=== PATIENT | female | born 1950 | race Caucasian/White ===

== ENCOUNTER 2016-05-16 13:36 | Inpatient (IN) | payer MEDICARE ==
--- NOTE | 2016-07-22 12:08 | HP ---
DATE OF CLINIC: 07/06/16 BRIAN VALE I. : 1950 PLANNED PROCEDURE: Left total knee arthroplasty DATE OF PROCEDURE: July 25, 2016 SURGEON: Dr. Jesus Solis MD PCP: Dr. Jan Mittal HISTORY OF PRESENT ILLNESS Brian Vale is a 65 year old female. * Medication list reviewed with patient allergy list reviewed with patient. * Tried NSAIDS * Tried Physical Therapy * Has not tried Injections Ms. Vale is in today pre-operatively for her upcoming left total knee arthroplasty with Dr. Solis on 07/25/16. Patient presents in good spirits and is eager to proceed. She denies recent illness, change in health, or prior surgical complications. Current labs are pending. Her recent consult with Dr. Solis follows: 65-year-old female here for 2nd opinion consultation with respect to her knees. She has a long history of chronic, progressive weightbearing related left knee discomfort. It is medial greater than lateral, but fairly diffuse, non-mechanical, worse at startup. She also has some rest discomfort. This is non-radicular. In addition, she's got some difficulty with some non-focal right knee discomfort and stiffness. She is s/p a [place] [address] Harrison. She has not see him for several years. This has not been progressive. She is also s/p a right DONNA by Dr. Baker in 2006 which has not been seen for years. She denies any hip pain. She denies any radicular symptoms on the right. She is wondering about additional treatment algorithm, particularly regarding the left knee. She has no recent illnesses. Comorbidities do include hypertension. CURRENT MEDICATION * Adult Aspirin EC Low Strength 81 MG Tablet Delayed Release 1 once a day 0 days, 0 refills * Calcium 1200 5064-3521 MG-UNIT Tablet Chewable 1 once a day 0 days, 0 refills * GNP Potassium Gluconate 595 (99 K) MG Tablet 1 once a day 0 days, 0 refills * HM Super Vitamin B12 2500 MCG Tablet Chewable 1 once a day 0 days, 0 refills * HydroCHLOROthiazide 12.5 MG Tablet 1 once a day 0 days, 0 refills * ICaps AREDS Formula Tablet 1 twice a day 500mg, 0 days, 0 refills * Magnesium 500 MG Capsule 1 once a day 0 days, 0 refills * Naproxen Sodium 220 MG Capsule 2 once a day 0 days, 0 refills * Psyllium Husk Powder as directed 150g daily, 0 days, 0 refills * Red Yeast Rice Extract 600 MG Capsule as directed 1800mg daily, 0 days, 0 refills * Verapamil HCl ER 240 MG Capsule Extended Release 24 Hour 1 once a day 0 days, 0 refills PAST MEDICAL/SURGICAL HISTORY Reported: Medical: A history of cancer cervical, history of Arthritis, and Anemia. Surgical / Procedural: Replacement of a hip Right hip replaced 2006, of a knee Right knee replaced [address] Harrison, and Carpal Tunnel Surgery Bilateral 1999. SOCIAL HISTORY Behavioral: Caffeine use and non-smoker never smoked. Smoking status: Never smoker. Alcohol: Alcohol 1 glass of wine daily and alcohol use. Work: Occupation special education teaching assistant. ALLERGIES * Codeine * Vicodin REVIEW OF SYSTEMS Systemic: No fever and no recent weight change. Head: No head symptoms. Cardiovascular: No cardiovascular symptoms. Pulmonary: No pulmonary symptoms. Gastrointestinal: Gastrointestinal symptoms GERD, diet related. Psychological: No psychological symptoms. Skin: No skin lesions and no rash. PHYSICAL FINDINGS * Vitals taken 07/06/2016 10:35 am BP-Sitting R 149/89 mmHg 100 - 120/56 - 80 BP Cuff Size Regular Pulse Rate-Sitting 82 bpm 50 - 100 Temp-Oral 97.8 F 96 - 101 Height 58.75 in 59 - 68 Weight 150 lbs 96 - 178 Body Mass Index 30.6 kg/m2 Body Surface Area 1.63 m2 Pain Level 0 Ears, Nose, Throat: * ENT: normal. Lungs: * Clear to auscultation. Cardiovascular: Heart Rate And Rhythm: * Normal. Abdomen: * Normal. Neurological: Motor: * Dominant Hand = Right Hand. Patient is a well-developed, well-nourished female in no acute distress, normal-appearing mood and affect. She stands with a genu valgum on the left, neutral alignment on the right side. She ambulates with a stiff-legged gait, antalgic on the left, worse at startup. Her pelvis is level. Evaluation of the left lower extremity shows some global swelling about the knee, no gross effusion. Motion 5-120 degrees. She has tenderness medially greater than laterally, fairly diffuse. There is crepitation with patellar compression that is uncomfortable. Patella tracks well. Mildly tender over the anteromedial proximal tibia. Ligamentous exam is intact for cruciates and collaterals. Calf is soft and NT. Distal light touch sensation and motor function are intact and symmetric. Pulses are palpable. Gentle rotation of the hip is nonirritable. Evaluation of the right knee shows a well-healed anterior incision. No significant swelling or effusion. Motion is 0-95 degrees. Reasonable joint play and alignment. Relatively poor patellar mobility. No focal periarticular tenderness. Calf is soft and NT. Distal light touch sensation and motor function are intact and symmetric. Pulses are palpable. Evaluation of the left hip shows mild tenderness laterally over the trochanter, NT in the groin, NT in the sciatic notch. Flexion past 100 degrees, IR 25 degrees, ER 70 degrees, abduction 45 degrees, adduction past the midline and full extension. She has no pain with resisted active hip flexion. TESTS * Test: CBC WITH DIFF Report Date: 07/06/2016 WBC 8.7 10*3/mL BASOPHIL 1.3 % High RBC 4.66 10*6/uL NEUTROPHILS 61.3 % MCH 27.5 pg MCHC 32.0 g/dL Low RDW 14.8 % High MCV 85.8 fL PLATELET COUNT 305 10*3/mL IMM NEUT % 0.3 % IMM NEUT # 0.0 10*3/mL MONOCYTES 8.5 % EOSINOPHIL 2.6 % HCT 40.0 % HGB 12.8 g/L LYMPHOCYTE 26.0 % ANC 5.4 10*3/mL * Test: URINALYSIS Report Date: 07/06/2016 GLUCOSE NEGATIVE PH,URINE 7.0 SPEC. GRAVITY 1.015 KETONE NEGATIVE NITRITE NEGATIVE BLOOD NEGATIVE BILIRUBIN NEGATIVE APPEARANCE CLEAR PROTEIN NEGATIVE COLOR YELLOW LEUK ESTERASE NEGATIVE UROBILINOGEN NORMAL * Test: PROTHROMBIN TIME Report Date: 07/06/2016 PROTIME 9.7 s INR 0.92 * Test: PARTIAL THROMBOPLASTIN TIME Report Date: 07/06/2016 APTT 23.7 s Low * Test: COMPREHENSIVE METABOLIC PANEL Report Date: 07/06/2016 ALT/SGPT 18 U/L ALBUMIN 4.0 g/dL ALB/GLOB RATIO 1.6 BUN 21 mg/dL BUN/CREAT RATIO 21 High CALCIUM 10.2 mg/dL GLUCOSE 83 mg/dL CREATININE 1.0 mg/dL SODIUM 138 meq/L POTASSIUM 4.2 meq/L CHLORIDE 100 meq/L CARBON DIOXIDE 33 meq/L High ANION GAP 9 meq/L TOT PROTEIN 6.5 g/dL GLOBULIN 2.5 g/dL BILI,TOTAL 0.3 mg/dL AST/SGOT 20 U/L ALK PHOSPHATASE 82 U/L GFR 55 Low * Test: CULTURE, MRSA Report Date: 07/08/2016 CULTURE, MRSA See Report 4 views of the left knee obtained today show significant tricompartmental degenerative disease with hypertrophic changes. On the AP flexion view she has complete obliteration of the lateral joint space. There are large marginal medial and lateral compartment spurs. Patellofemoral articulation shows slight subluxation with superior and inferior spurring. Right knee, 3 views, show a cemented cruciate retaining arthroplasty in good position and alignment. No evidence of osteolysis, loosening or wear. Patellofemoral articulation is well-reduced. ASSESSMENT * Localized primary osteoarthritis of the left knee Advanced DJD, left knee. This seems to be her limiting problem. 7 years post right TKA, done elsewhere with chronic suboptimal motion, non-progressive. 10 years post right DONNA, clinically doing well. No recent radiographic evaluation. THERAPY * Patient fall risk screen positive. * Patient eligible for fall risk assessment. * Patient received fall risk assessment. COUNSELING/EDUCATION * Education and counseling Total Joint Book given PLAN * Unilateral primary osteoarthritis, left knee Physical Therapy: [facility] * OTHER OxyCONTIN 10 MG T12A, 1 po q 12 hours-TO BE USED FOR AFTER SURGERY, 10 days, 0 refills TraMADol HCl 50 MG TABS, 1 po q 6 hours prn pain-TO BE USED FOR AFTER SURGERY, 5 days, 0 refills OxyCODONE HCl 5 MG TABS, 1-2 po q 4 hours for break thru pain if needed-TO BE USED FOR AFTER SURGERY, 5 days, 0 refills * Total knee arthroplasty -Left Discussed with patient in detail the limitations, expectations as well as risks and possible complications of surgery including, but not limited to wound problems or infection, neurovascular injury, continued knee pain or dysfunction, including the possibility of prosthetic wear or failure over time that may require additional operative or nonoperative treatment. Patient also realizes the perioperative risks including risks associated with anesthesia and would like to proceed. A full PAR conference was held, questions and concerns addressed and informed consent was obtained. Patient will be sent from my office for completion of the preoperative workup. Patient will use aspirin 325mg daily for 6 weeks postoperatively for DVT prophylaxis. Patient would like to perform their postop PT at [facility] with left total knee arthroplasty protocol. CARE TEAM Jan Mittal MD [facility] CC: Jan Mittal [facility]
[2016-07-25] MEDS ORDERED: LACTATED RINGERS 1,000 ML ONE (08:07)
[2016-07-25] MEDS ORDERED: CEFAZOLIN SODIUM 2 GRAM PREMIX 100 ML IV ONE (08:08)
[2016-07-25] MEDS ORDERED: IV START KIT ONE (08:08)
[2016-07-25] MEDS ORDERED: FAMOTIDINE 20 MG TABLET PO ONE (08:30)
[2016-07-25] MEDS ORDERED: BUPIVACAINE 0.25% (MDV) 24 ML, MORPHINE SULFATE 8 MG, EPINEPHRINE 0.3 MG in SODIUM CHLO... IF PRN (08:30)
[2016-07-25] MEDS ORDERED: GABAPENTIN 600 MG TABLET PO ONE (08:30)
[2016-07-25] MEDS ORDERED: BUPIVACAINE 0.25% (MDV) 20 ML in SODIUM CHLORIDE 0.9% FLUSH 20 ML IF PRN (08:30)
[2016-07-25] MEDS ORDERED: ONDANSETRON 4 MG/2ML 2 ML VIAL IV ONE (08:30)
[2016-07-25] MEDS ORDERED: CELECOXIB 200 MG CAPSULE PO ONE (08:30)
[2016-07-25] MEDS ORDERED: OXYCODONE HCL 10 MG TAB.SR PO ONE ×2 (08:30→09:07)
[2016-07-25] MEDS ORDERED: TRANEXAMIC ACID 1,000 MG in SODIUM CHLORIDE 0.9% 100 ML IV PRN (08:30)
[2016-07-25] MEDS ORDERED: CEFAZOLIN SODIUM 2 GRAM PREMIX 100 ML IV PRN (08:30)
[2016-07-25] MEDS ORDERED: TRAMADOL HCL 50 MG TABLET PO ONE (08:30)
[2016-07-25] MEDS ORDERED: POLYMYXIN B SULFATE 500,000 UNITS, BACITRACIN 25,000 UNITS in SODIUM CHLORIDE 3 L IRRIG... IR PRN (08:30)
[2016-07-25] MEDS ORDERED: CLONIDINE HCL 0.1 MG/24 HR (7 DAY PATCH) TD SCH (08:30)
[2016-07-25] MEDS ORDERED: TRAMADOL HCL 50 MG TABLET ONE (09:07)
[2016-07-25] MEDS ORDERED: FAMOTIDINE 20 MG TABLET ONE (09:07)
[2016-07-25] MEDS ORDERED: ONDANSETRON 4 MG/2ML 2 ML VIAL ONE (09:07)
[2016-07-25] MEDS ORDERED: CLONIDINE HCL 0.1 MG/24 HR (7 DAY PATCH) TD ONE (09:08)
[2016-07-25] MEDS ORDERED: CELECOXIB 200 MG CAPSULE ONE (09:08)
[2016-07-25] MEDS ORDERED: GABAPENTIN 600 MG TABLET ONE (09:08)
[2016-07-25] MEDS ORDERED: FENTANYL 250 MCG/5 ML AMP ONE (09:12)
[2016-07-25] MEDS ORDERED: MIDAZOLAM HCL 5 MG/5 ML VIAL ONE (09:12)
[2016-07-25] MEDS ORDERED: SCOPOLAMINE 1.5 MG/72 HR 1 EACH PATCH TD ONE (09:19)
[2016-07-25] MEDS ORDERED: SPINAL PROCEDURAL TRAY 1 EACH ONE (09:37)
[2016-07-25] MEDS ORDERED: ROPIVACAINE 0.2% 20 ML VIAL ONE ×2 (09:37→09:38)
[2016-07-25] MEDS ORDERED: NERVE BLOCK PROCEDURAL TRAY 1 EACH ONE (09:37)
[2016-07-25] MEDS ORDERED: EPHEDRINE SULFATE UD SYR 25 MG 25 MG/5 ML SYRINGE IV ONE (11:43)
[2016-07-25] MEDS ORDERED: PROPOFOL 40 ML IV ONE (11:45)
[2016-07-25] MEDS ORDERED: DEXAMETHASONE SOD PHOS 4 MG/1 ML VIAL ONE (11:45)
[2016-07-25] MEDS ORDERED: LIDOCAINE 2% (PRES FREE) 5 ML VIAL ONE (11:45)
[2016-07-25] MEDS ORDERED: PHENYLEPHRINE 10 MG/1 ML (1%) VIAL ONE (12:00)
[2016-07-25] MEDS ORDERED: ONDANSETRON 4 MG/2ML 2 ML VIAL IV PRN ×2 (12:07→13:33)
[2016-07-25] MEDS ORDERED: ATROPINE SULFATE 0.4 MG/1 ML VIAL IV PRN (12:07)
[2016-07-25] MEDS ORDERED: HYDROMORPHONE HCL 1 MG/ML SYRINGE IV PRN ×3 (12:07→14:16)
[2016-07-25] MEDS ORDERED: FENTANYL 100 MCG/2 ML VIAL IV PRN (12:07)
[2016-07-25] MEDS ORDERED: NALOXONE HCL 0.4 MG/ML VIAL IV PRN (12:07)
[2016-07-25] MEDS ORDERED: ON-Q PUMP/ROPIVACAINE 0.2% 450 ML in PREMIX BAG 1 EACH NB PRN (12:07)
[2016-07-25] MEDS ORDERED: PROMETHAZINE HCL 25 MG/ML VIAL IM PRN (12:07)
[2016-07-25] MEDS ORDERED: DIPHENHYDRAMINE HCL 50 MG/1 ML VIAL ONE (12:08)
[2016-07-25] MEDS ORDERED: LACTATED RINGERS 1,000 ML IV SCH (12:15)
[2016-07-25] MEDS ORDERED: PROPOFOL 20 ML IV ONE (12:46)
[2016-07-25] MEDS ORDERED: ON-Q PUMP/ROPIVACAINE 0.2% 450 ML ONE (13:11)
--- NOTE | 2016-07-25 13:31 | PCMBPN ---
Brief Post Op Note: Date of Procedure: 07/25/16 Preoperative Diagnosis: DJD left knee Postoperative Diagnosis: 1. [Same] Procedure: left TKA Surgeon: Jesus Solis MD Assist:Yunier Anesthesia: spinal/add block ([facility]) Condition: stable to PAR Complications: none IV Fluids: 2000 mLs of LR Urine Output: 600 mLs Estimated Blood Loss: 150 mLs Tourniquet Time: ~40 Specimens: [N/A] Implants: Legion Drains: none
--- NOTE | 2016-07-25 13:56 | RAD ---
KNEE LEFT 1 OR 2 VIEWS COMPARISON: Left leg 3 views, 03/04/2016 HISTORY: Immediately postop left total knee arthroplasty. FINDINGS: Views: Left knee AP and lateral Bones: Normal. Joints: Satisfactory appearance of the left total knee arthroplasty. Soft tissues: Normal. IMPRESSION: Satisfactory appearance of the left total knee arthroplasty.
[2016-07-25] MEDS ORDERED: HYDROMORPHONE HCL 0.5 MG/0.5 ML SYRINGE IV PRN (14:16)
[2016-07-25] MEDS ORDERED: HYDROMORPHONE HCL 2 MG/ML SYRINGE IV PRN (14:16)
[2016-07-25 14:21] VITALS: BMI 29.2
--- NOTE | 2016-07-25 14:28 | OP ---
ANIBAL TEIXEIRA I. [id number] : 1950 DATE OF SURGERY: July 25, 2016 PREOPERATIVE DIAGNOSIS: Degenerative joint disease left knee POSTOPERATIVE DIAGNOSIS: Same PROCEDURE: Left Total Knee Arthroplasty COMPONENTS: Legion size 3 posterior stabilized Oxinium cemented femoral component, size 2 cemented tibial base plate, 11mm high flexion cross-linked polyethylene articular insert, 32mm resurfacing patella. SURGEON: Jesus Solis M.D. PARENTING SKILLS INSTRUCTOR: Yunier QURESHI) ANESTHESIA: Spinal plus adductor nerve block per [place] ESTIMATED BLOOD LOSS: 150 cc IV FLUID REPLACEMENT: per anesthesia, 2 liters crystalloid. URINE OUTPUT: 600 cc DRAINS: None TOURNIQUET TIME: Approximately 40 minutes COMPLICATIONS: None HISTORY: Briefly, patient is a 65-year-old female with clinical and radiographic evidence of advanced degenerative disease of their right knee. They have failed traditional non-operative management and desire elective total knee arthroplasty. For additional details, please refer to the previously dictated Preoperative History and Physical Examination. A PAR conference was held, questions and concerns were addressed, and informed consent was obtained. FINDINGS: Tricompartmental degenerative disease particularly the lateral compartment seen most with wear in the posterolateral tibia and peripheral osteophytes. There is also full thickness trochlear loss. Periarticular bone is quite osteopenic. PROCEDURE: The patient was taken to the operating room after the placement of a spinal anesthetic and regional nerve block. They were placed supine on the operating room table, a tourniquet was applied to the proximal thigh and the left lower extremity was prepped and draped out in the usual sterile fashion. Preoperative IV antibiotics were given empirically. Intraoperative DVT prophylaxis consisted of contralateral foot pumps. Personal filtration suits were used as was a closed room environment. A WHO timeout was taken. Surgical site was identified and confirmed. The leg was then elevated and the tourniquet inflated after gravity exsanguination. This was released after initial exposure and not utilized again until cementation. Tranexamic acid was infiltrated over 10 minutes prior to incision, 1 gram dose per protocol. A similar 2nd dose was given at initiation of closure. With the knee flexed, an anteromedial incision was made from the level of the tibial tubercle to two centimeters proximal to the superior pole of the patella. A medial arthrotomy was performed with a mini-mid vastus approach. A medial subperiosteal proximal tibial release was performed and a portion of the anterior fat pad was excised to improve visualization. The supra-patellar pouch was raised subperiosteally. The anterior and posterior cruciate ligaments were excised as were the remaining portions of the anterior horns of the medial and lateral menisci. Minimally invasive instrumentation and philosophy were used throughout the procedure in an attempt to decrease the extent of soft tissue disruption/damage. Patient matched cutting blocks were also used as per our preoperative plan. The [employer] patient matched distal femoral cutting block was applied and secured to the bone. We confirmed that the alignment matched our preoperative plan and made the distal femoral cut. We confirmed the size of the femur and placed the appropriate 4-in-1 cutting block making our anterior and posterior condylar cuts followed by the chamfer cuts. Residual marginal osteophytes were removed. Attention was then directed to the tibia which was retracted anteriorly. Remaining meniscal tissue was excised. The Visionaire patient matched tibial block was then positioned and secured to bone. Alignment was confirmed as per our preoperative plan and the proximal tibial cut made. The tibia was sized and we passed the 11 mm. punch. We then assured the flexion and extension gaps were balanced. We confirmed hemostasis. We then completed the femoral preparation by reaming and chiseling the notch. Femoral and tibial trial components were placed. We were able to obtain full extension with nice roll back and good coronal plane alignment and stability. The patella tracked well and was prepared using the Trinity patellar reaming system removing 9 mm. of bone. Osteophytes were removed prior to this with a rongeur and we performed a circumferential limited denervation using cautery. This was sized accordingly and punch holes were drilled. We marked our tibial rotation and removed the trial components after passing the cruciform tibial punch. The knee was then re-exsanguinated and the tourniquet inflated. Double antibiotic pulsatile lavage was used to irrigate the knee and clean the cancellous karoline interstices which were then carefully dried. Periarticular injection was done at this point per protocol of the posterior capsule, posteromedial knee and synovium. Two doses of high viscosity, methylene blue-stained, antibiotic impregnated polymethylmethacrylate were used to cement the tibial, femoral, and then patellar components. The knee was held in extension while the cement cured. All residual methacrylate was meticulously removed. Attention was then directed towards closure. We irrigated and the retinaculum was closed with a running #2 absorbable Strato-Fix suture. A second periarticular injection was done at this point per protocol. The repair was checked in maximum flexion. We then lightly irrigated the subcutaneous tissue and closed with interrupted 2-0 and 3-0 Vicryl Plus. The skin was then reapproximated with a subcuticular 4-0 Monocryl followed by Dermabond Prineo. A sterile compression dressing was applied. The patient was then transferred to their hospital bed and sent to the post anesthesia recovery room in stable condition. They tolerated the procedure well. Sponge, instrument, and needle count were correct. CC: Phill Mittal MD [facility]
[2016-07-25] MEDS ORDERED: PUMP TUBING ONE (14:43)
[2016-07-25] MEDS: D5 1/2NS with 20 mEq KCL 1,000 ML IV SCH ×2 (14:46→20:46)
[2016-07-25] MEDS: KETOROLAC TROMETHAMINE 30 MG/ML 1 ML VIAL IV PRN (17:20)
[2016-07-25] MEDS: OXYCODONE HCL 5 MG TABLET PO PRN (17:20)
[2016-07-25] MEDS: CEFAZOLIN SODIUM 1 GRAM PREMIX 1 G in Premix (D5W) 50 ml 1 EACH IV SCH (19:21)
--- NOTE | 2016-07-25 19:22 | CONS ---
ANIBAL TEIXEIRA [id number] : 1950 DATE OF ADMISSION: July 25, 2016 DATE OF CONSULTATION: July 25, 2016 PRIMARY CARE PROVIDER: Jan Mittal M.D. CONSULTATION REQUESTED BY: Jesus Solis M.D. REASON FOR CONSULTATION: Perioperative medical management. CHIEF COMPLAINT: Left knee pain. HISTORY ON ADMISSION: Ms. Teixeira has a long history of osteoarthritis and degenerative changes of the left knee. She consulted with Dr. Solis and presented today for planned left total knee arthroplasty. She had surgery under spinal anesthesia with an adductor block. Estimated blood loss was 150 mL. Tourniquet time approximately 40 minutes. No complications. She is seen on the medical/surgical floor postoperatively. She is alert and oriented. Denies pain, denies nausea which is a relief to her as she has had significant nausea with previous surgeries. Denies dyspnea or pruritus. PREOPERATIVE REVIEW OF SYSTEMS: No upper or lower respiratory symptoms. No cardiac symptoms. No gastrointestinal symptoms. No genitourinary symptoms. PAST MEDICAL HISTORY: Hypertension. PAST SURGICAL HISTORY: 1. Right total knee arthroplasty in 2008. 2. Right total hip arthroplasty in 2006. 3. Surgery for detached retina and cataract in the right eye. 4. Remote hysterectomy. ALLERGIES: REPORTED TO: 1. CODEINE. 2. HYDROCODONE WHICH CAUSED VOMITING AND RASH. 3. SHE REPORTS GLUTEN INTOLERANCE. MEDICATIONS: 1. Vitamin D3. 2. PreserVision. 3. Verapamil 240 mg orally daily. 4. Tramadol. 5. Red yeast. 6. Naproxen. 7. Magnesium 250 mg orally twice daily. 8. Hydrochlorothiazide 12.5 mg orally daily. 9. Cyanocobalamine. 10. Calcium with vitamin D. 11. Aspirin 81 mg orally daily. HABITS: No tobacco. She does use alcohol socially. SOCIAL HISTORY: She is single, retired, lives in [place] with her daughter. FAMILY HISTORY: Unknown. PHYSICAL EXAMINATION: GENERAL: This is a pleasant 65-year-old in good spirits. VITAL SIGNS: Temperature is 97.3 degrees Fahrenheit, pulse 77, blood pressure 111/69, respiratory rate 17, oxygen saturation 94% on 2 L of oxygen by nasal cannula. HEENT: Pupils equal, round and reactive. Extraocular muscles are intact. Right does have an artificial lens. Oropharynx is moist. LUNGS: Clear to auscultation HEART: Regular with a 1 to 2/6 systolic murmur. . ABDOMEN: Soft, nontender, normal bowel tones. No organomegaly. EXTREMITIES: Moderate posterior tibial pulses. No cyanosis, clubbing or edema. Adductor nerve block is in place in the left thigh, and the left knee is dressed in a cooling blanket. NEUROLOGIC: Alert and oriented, no focal deficits. PREOPERATIVE LABORATORY STUDIES: On July 06, 2016, she had normal CBC, normal prothrombin time and partial thromboplastin time, normal chemistries except for CO2 elevated at 33. Negative urinalysis and negative MRSA screening. ASSESSMENT: Ms. Teixeira is a 65-year-old status post left total knee arthroplasty. She has underlying hypertension. RECOMMENDATIONS: 1. Postoperative care per Dr. Solis. 2. Parameters for antihypertensive medication. 3. Aspirin for postoperative venous thromboembolism prophylaxis. Thank you, Dr. Solis, for this consultation. The hospitalist service will follow.
[2016-07-25] MEDS: ASCORBIC ACID 500 MG TABLET PO SCH (20:45)
[2016-07-25] MEDS: DOCUSATE SODIUM 100 MG CAPSULE PO SCH (20:45)
[2016-07-26] MEDS: OXYCODONE HCL 5 MG TABLET PO PRN ×6 (00:36→21:22)
[2016-07-26] MEDS: CEFAZOLIN SODIUM 1 GRAM PREMIX 1 G in Premix (D5W) 50 ml 1 EACH IV SCH (04:42)
[2016-07-26] MEDS: ON-Q PUMP/ROPIVACAINE 0.2% 450 ML in PREMIX BAG 1 EACH NB PRN (04:43)
[2016-07-26 06:46] LABS: HEMATOCRIT 33.2 % (37.0-47.0); HEMOGLOBIN 10.7 gm/l (12.0-16.0); MEAN CORPUSCULAR HEMOGLOBIN 27.7 pg (27.0-31.0); MEAN CORPUSCULAR HGB CONC 32.2 g/dl (33.0-37.0); RED CELL DISTRIBUTION WIDTH 14.2 % (11.5-14.5)
[2016-07-26 07:03] LABS: CALCIUM 8.8 mg/dL (8.6-10.3)
[2016-07-26] MEDS: D5 1/2NS with 20 mEq KCL 1,000 ML IV SCH (07:12)
[2016-07-26] MEDS ORDERED: CYCLOBENZAPRINE HCL 10 MG TABLET PO PRN (07:20)
--- NOTE | 2016-07-26 07:27 | PDOC43 ---
- Subjective Findings: Difficulty sleeping last PM, but pain control reasonable. Very excited that she has not had her typical postoperative problems with N/V Subjective: Reports Flatus, Reports Pain Tolerable, Denies Nausea, Denies Vomiting, Denies Fever - Objective Vital Signs Temperature 97.8 F 07/26/16 04:50 Pulse Rate 83 07/26/16 04:50 Respiratory Rate 18 07/26/16 04:50 Blood Pressure 126/69 07/26/16 04:50 O2 Saturation by Pulse Oximetry 95 07/26/16 04:50 Oxygen Delivery Method Room Air Oxygen Flow Rate 2 Laboratory 07/26/16 06:10 07/26/16 06:10 07/26/16 06:10 RBC 3.86 L MCHC 32.2 L Active Medication Orders Category Date Time Status Ascorbic Acid [Vitamin C] Med 07/25/16 21:00 Active 500 mg PO BID Aspirin (Enteric Coated) [Ecotrin] Med 07/26/16 09:00 Active 325 mg PO DAILY Bisacodyl [Dulcolax] Med 07/28/16 13:33 Active 10 mg CO DAILY PRN Calcium Carbonate [Tums] Med 07/25/16 13:33 Active 1,000 - 2,000 mg PO Q2H PRN Celecoxib [Celebrex] Med 07/26/16 09:00 Active 200 mg PO DAILY Cyanocobalamin [Vitamin B-12] Med 07/26/16 09:00 Active 250 mcg PO QAM Cyclobenzaprine HCl [Flexeril] Med 07/26/16 07:20 Ordered 10 mg PO BEDTIME PRN D5 1/2NS with 20 mEq KCL [D51/2NS with 20 mEq KCL] 1, Med 07/25/16 13:45 Active 000 ml IV 125 mls/hr Docusate Sodium [Colace] Med 07/25/16 21:00 Active 100 mg PO BID Hydrochlorothiazide Med 07/26/16 09:00 Active 12.5 mg PO QAM Hydromorphone HCl [Dilaudid] Med 07/25/16 14:16 Active 0.5 - 2 mg IV Q2H PRN Hydromorphone HCl [Dilaudid] Med 07/25/16 14:16 Active 0.5 - 2 mg IV Q2H PRN Hydromorphone HCl [Dilaudid] Med 07/25/16 14:16 Active 0.5 - 2 mg IV Q2H PRN Ketorolac Tromethamine [Toradol] Med 07/25/16 13:33 Active 30 mg IV Q6H PRN Magnesium Hydroxide [Milk of Magnesia] Med 07/26/16 13:33 Active 30 ml PO DAILY PRN Multivitamins [One-A-Day] Med 07/26/16 09:00 Active 1 tab PO DAILY On-Q Pump/Ropivacaine 0.2% 450 ml Med 07/25/16 13:33 Active Premix Bag [Premix Fluid] 1 each NB Q50H Ondansetron 4 mg/2ml Vial [Zofran] Med 07/25/16 13:33 Active 4 - 6 mg IV Q6H PRN Oxycodone HCl [Roxicodone] Med 07/25/16 13:33 Active 5 - 10 mg PO Q4H PRN Remove Patch Med 07/26/16 13:33 Once 1 each TD X1 ONE Sodium Chloride 0.9% Flush [Normal Saline 10ml Flush] Med 07/25/16 13:33 Active 10 - 50 ml IV PRN PRN Tramadol HCl [Ultram] Med 07/25/16 19:30 Active 50 mg PO Q6H PRN Verapamil HCl [Calan Sr] Med 07/26/16 09:00 Active 240 mg PO QAM Vitamin D3 Med 07/26/16 09:00 Active 2,000 units PO QAM Intake and Output 07/24/16 07/25/16 07/26/16 23:59 23:59 23:59 Intake Total 3250 1826 Output Total 2525 1550 Balance 725 276 General: Afebrile, No Acute Distress HEENT: Mucous membr. moist/pink Lungs: Normal Air Movement Cardiovascular: Regular Rate and Rhythm Abdomen: Soft Skin: Normal Color Neurological: Alert, Oriented x 4 Psych/Mental Status: Normal Affect, Normal Mood - Left Lower Extremity Incision: Dressing Clean/Dry/Intact, No Drainage Motor: Extensor Hallucis Longus: 5/5, Tibialis Anterior: 5/5, Gastrocnemius: 5/5 , Peroneals: 5/5, Quadriceps: 4/5 Gross Sensation to Light Touch: Present: Deep Peroneal Nerve, Superficial Peroneal Nerve, Medial Plantar Nerve, Lateral Plantar Nerve, Sural Nerve, Saphenous Nerve Capillary Refill: < 3 Seconds Motion: active HS- 0-60, reasonable quad contraction PROM supine 0-75 - Problems (1) Status post total left knee replacement Status: AcuteAssessment/Plan: POD#1- doing very well overall 1. Physical Therapy: continue per TKA protocol 2. Pain Control: excellent with protocol, holding oxycontin and added NSAID. Instruced on use of nerve catheter which was decreased to 6/hr this AM 3. DVT Prophylaxis: mechanicals/ASA/mobilization 4. Disposition: willl follow. Expect if continues to progress will likely be ready for D/C in AM 5. Medical Issues: Stable- appreciate Hospitalist input/management
[2016-07-26] MEDS: KETOROLAC TROMETHAMINE 30 MG/ML 1 ML VIAL IV PRN (08:19)
[2016-07-26] MEDS: TRAMADOL HCL 50 MG TABLET PO PRN ×2 (08:19→19:51)
[2016-07-26] MEDS ORDERED: REMOVE PATCH 1 EACH UNIT TD SCH (08:30)
[2016-07-26] MEDS: VERAPAMIL HCL 240 MG PO SCH (09:31)
[2016-07-26] MEDS: HYDROCHLOROTHIAZIDE 12.5 MG CAP PO SCH (09:32)
[2016-07-26] MEDS: MULTIVITAMINS 1 TAB TABLET PO SCH (09:39)
[2016-07-26] MEDS: DOCUSATE SODIUM 100 MG CAPSULE PO SCH ×2 (09:39→21:21)
[2016-07-26] MEDS: CELECOXIB 200 MG CAPSULE PO SCH (09:39)
[2016-07-26] MEDS: VITAMIN D3 1,000 UNITS CAP.LIQ PO SCH (09:39)
[2016-07-26] MEDS: CYANOCOBALAMIN (VITAMIN B-12) 250 MCG TABLET PO SCH (09:39)
[2016-07-26] MEDS: ASCORBIC ACID 500 MG TABLET PO SCH ×2 (09:40→21:21)
[2016-07-26] MEDS: ASPIRIN (ENTERIC COATED) 325 MG TABLET.EC PO SCH (09:40)
--- NOTE | 2016-07-26 11:05 | PDOC43 ---
- Subjective Chief Complaint: S/P LTK arthroplasty 07/25/16 In good spirits. Denies dyspnea, cough, faintness, dysuria. Pain control okay but did not sleep well. - Objective Vital Signs Temperature 99.0 F 07/26/16 07:24 Pulse Rate 77 07/26/16 07:24 Respiratory Rate 16 07/26/16 07:24 Blood Pressure 113/66 07/26/16 07:24 O2 Saturation by Pulse Oximetry 97 07/26/16 07:24 Oxygen Delivery Method Nasal Cannula Oxygen Flow Rate 2 Intake and Output 07/25/16 07/26/16 07/27/16 06:59 06:59 06:59 Intake Total 5076 Output Total 4075 Balance 1001 General: Alert, Oriented x3, Cooperative, No Acute Distress HEENT: Mucous membr. moist/pink Lungs: Clear to Auscultation Bilaterally, Normal Air Movement Cardiovascular: Regular Rate and Rhythm Abdomen: Soft, Tenderness, Masses, Normal Bowel Sounds Extremities: Normal Pulses, No Edema Skin: Normal Color Neurological: Normal Speech Psych/Mental Status: Normal Mood Laboratory 07/26/16 06:10 07/26/16 06:10 07/26/16 06:10 RBC 3.86 L MCHC 32.2 L Current Medications: Current meds reviewed in EMR. - Problems: Assessment/Plan (1) Status post total left knee replacement Status: AcuteAssessment/Plan: Management per orthopedics, doing well. (2) HTN (hypertension), benign Status: ChronicAssessment/Plan: stable (3) Acute blood loss anemia Status: AcuteAssessment/Plan: moderate degree, follow (4) Leukocytosis Status: AcuteAssessment/Plan: suspect response to surgery, will check differential and repeat in a.m. VTE Prophylaxis: Mechanical and ASA Disposition: D/C in 1-2 days
[2016-07-26] MEDS: CALCIUM CARBONATE 500 MG TAB.CHEW PO PRN ×2 (11:07→21:22)
[2016-07-26 12:21] LABS: BAND 1 % (0-10); LYMPHOCYTE 6 % (15-45); MONOCYTE 12 % (4-12); NEUTROPHILS 81 % (43-75); TOTAL CELLS COUNTED 100
[2016-07-26 12:22] LABS: BASOPHIL 0 % (0-1); EOSINOPHIL 0 % (1-3); PLATELET ESTIMATE NORMAL (NORMAL)
[2016-07-26] MEDS ORDERED: MAGNESIUM HYDROXIDE 30 ML UDCUP PO PRN (13:33)
[2016-07-26] MEDS ORDERED: REMOVE PATCH 1 EACH UNIT TD ONE (13:33)
[2016-07-27] MEDS: OXYCODONE HCL 5 MG TABLET PO PRN ×4 (00:16→13:05)
[2016-07-27] MEDS: ON-Q PUMP/ROPIVACAINE 0.2% 450 ML in PREMIX BAG 1 EACH NB PRN ×2 (02:00→06:48)
[2016-07-27 06:45] LABS: ABSOLUTE NEUTROPHIL COUNT 12.5 K/mm3 (1.8-7.7); BASO # 0.1 K/mm3 (0.0-0.2); BASO % 0.7 % (0.2-1.0); EOS # 0.2 (0.0-0.5); EOS % 1.2 % (0.9-2.9); HEMATOCRIT 36.2 % (37.0-47.0); HEMOGLOBIN 11.3 gm/l (12.0-16.0); IMM NEUT # 0.1 K/mm3 (0-0.2); IMM NEUT% 0.4 % (0-1); LYMPH # 2.2 (1.0-4.8); LYMPH % 13.3 % (15-45); MEAN CORPUSCULAR HEMOGLOBIN 27.2 pg (27.0-31.0); MEAN CORPUSCULAR HGB CONC 31.2 g/dl (33.0-37.0); MEAN PLATELET VOLUME 10.4 fl (7.4-10.4); MONO # 1.3 (0.0-0.8); MONO % 7.8 % (4-12); NEUT % 76.6 % (43-75); PLATELET COUNT 277 K/mm3 (130-400); RED CELL DISTRIBUTION WIDTH 14.8 % (11.5-14.5)
[2016-07-27 07:23] VITALS: BP 137/77
[2016-07-27] MEDS ORDERED: KETOROLAC TROMETHAMINE 30 MG/ML 1 ML VIAL IV PRN (08:02)
[2016-07-27] MEDS: TRAMADOL HCL 50 MG TABLET PO PRN (08:32)
[2016-07-27] MEDS: VERAPAMIL HCL 240 MG PO SCH (08:32)
[2016-07-27] MEDS: ASPIRIN (ENTERIC COATED) 325 MG TABLET.EC PO SCH (08:32)
[2016-07-27] MEDS: HYDROCHLOROTHIAZIDE 12.5 MG CAP PO SCH (08:32)
[2016-07-27] MEDS: CYANOCOBALAMIN (VITAMIN B-12) 250 MCG TABLET PO SCH (08:32)
[2016-07-27] MEDS: CELECOXIB 200 MG CAPSULE PO SCH (08:32)
[2016-07-27] MEDS: DOCUSATE SODIUM 100 MG CAPSULE PO SCH (08:32)
[2016-07-27] MEDS: VITAMIN D3 1,000 UNITS CAP.LIQ PO SCH (08:32)
[2016-07-27] MEDS: ASCORBIC ACID 500 MG TABLET PO SCH (08:32)
[2016-07-27] MEDS: MULTIVITAMINS 1 TAB TABLET PO SCH (08:32)
--- NOTE | 2016-07-27 08:55 | PDOC43 ---
- Subjective Findings: Ortho POD 2 L TKA Patient awake, A and O times 4 this am. C/O more knee pain this am otherwise no c/o. Denies CP/SOB/NV. Taking a regular diet and positive flatus. Good progress with ambulatory PT POD 1. Subjective: Denies Chest Pain, Denies Shortness of Breath, Denies Nausea, Denies Vomiting - Objective Vital Signs Temperature 98.4 F 07/27/16 07:22 Pulse Rate 101 07/27/16 07:22 Respiratory Rate 14 07/27/16 07:22 Blood Pressure 137/77 07/27/16 07:22 O2 Saturation by Pulse Oximetry 92 07/27/16 07:22 Oxygen Delivery Method Room Air Oxygen Flow Rate 0 Laboratory 07/27/16 06:15 07/26/16 06:10 07/27/16 06:15 RBC 4.16 L MCHC 31.2 L RDW 14.8 H Active Medication Orders Category Date Time Status Ascorbic Acid [Vitamin C] Med 07/25/16 21:00 Active 500 mg PO BID Aspirin (Enteric Coated) [Ecotrin] Med 07/26/16 09:00 Active 325 mg PO DAILY Bisacodyl [Dulcolax] Med 07/28/16 13:33 Active 10 mg TN DAILY PRN Calcium Carbonate [Tums] Med 07/25/16 13:33 Active 1,000 - 2,000 mg PO Q2H PRN Celecoxib [Celebrex] Med 07/26/16 09:00 Active 200 mg PO DAILY Cyanocobalamin [Vitamin B-12] Med 07/26/16 09:00 Active 250 mcg PO QAM Cyclobenzaprine HCl [Flexeril] Med 07/26/16 07:20 Active 10 mg PO BEDTIME PRN Docusate Sodium [Colace] Med 07/25/16 21:00 Active 100 mg PO BID Hydrochlorothiazide Med 07/26/16 09:00 Active 12.5 mg PO QAM Hydromorphone HCl [Dilaudid] Med 07/25/16 14:16 Active 0.5 - 2 mg IV Q2H PRN Hydromorphone HCl [Dilaudid] Med 07/25/16 14:16 Active 0.5 - 2 mg IV Q2H PRN Ketorolac Tromethamine [Toradol] Med 07/27/16 08:02 Active 30 mg IV Q6H PRN Magnesium Hydroxide [Milk of Magnesia] Med 07/26/16 13:33 Active 30 ml PO DAILY PRN Multivitamins [One-A-Day] Med 07/26/16 09:00 Active 1 tab PO DAILY On-Q Pump/Ropivacaine 0.2% 450 ml Med 07/25/16 13:33 Active Premix Bag [Premix Fluid] 1 each NB Q50H Ondansetron 4 mg/2ml Vial [Zofran] Med 07/25/16 13:33 Active 4 - 6 mg IV Q6H PRN Oxycodone HCl [Roxicodone] Med 07/26/16 16:42 Active 5 - 10 mg PO Q3H PRN Sodium Chloride 0.9% Flush [Normal Saline 10ml Flush] Med 07/25/16 13:33 Active 10 - 50 ml IV PRN PRN Sodium Chloride 0.9% Flush [Normal Saline 10ml Flush] Med 07/27/16 09:00 Active 10 ml IV Q8HR Tramadol HCl [Ultram] Med 07/25/16 19:30 Active 50 mg PO Q6H PRN Verapamil HCl [Calan Sr] Med 07/26/16 09:00 Active 240 mg PO QAM Vitamin D3 Med 07/26/16 09:00 Active 2,000 units PO QAM Intake and Output 07/25/16 07/26/16 07/27/16 23:59 23:59 23:59 Intake Total 3250 2526 1350 Output Total 2525 2375 1075 Balance 725 151 275 Neurological: No Normal Gait (ambulating with a walker post L TKA) Peripheral Pulses: Left Posterior Tibialis: 1+, Left Dorsalis Pedis: 1+ - Left Lower Extremity Incision: Well Approximated (with a subcutaneous closure, skin glue and mesh, moderate knee edema), No Dressing Saturated, No Shadow Drainage, No Drainage, No Erythema, No Rash, No Terrence Intact (none) Motor: Extensor Hallucis Longus: 5/5, Tibialis Anterior: 4/5, Gastrocnemius: 4/5 , Peroneals: 5/5, Quadriceps: 4/5 Gross Sensation to Light Touch: Present: Deep Peroneal Nerve, Superficial Peroneal Nerve, Medial Plantar Nerve, Lateral Plantar Nerve, Sural Nerve, Saphenous Nerve - Problems (1) Status post total left knee replacement Status: AcuteAssessment/Plan: Ortho POD#2- doing well overall 1. Physical Therapy: continue per TKA protocol 2. Pain Control: More pain this am. Will add Toradol 30mg q 6 hrs and repeat times 2 prn. Continue pain protocol otherwise as written. 3. DVT Prophylaxis: mechanicals/ASA/mobilization 4. Please provide an incentive spirometer and instuct in use. 5. Disposition: Potential discharge today if meets criteria with pain control and PT/OT. 6. Medical Issues: Stable- appreciate Hospitalist input/management
[2016-07-27] MEDS ORDERED: ACETAMINOPHEN 500 MG TABLET PO PRN (09:47)
--- NOTE | 2016-07-27 11:26 | PDOC43 ---
- Subjective Chief Complaint: S/P LTK arthroplasty 07/25/16 Had pain crisis this a.m. but now much better with toradol treatment. Denies dyspnea, cough, faintness or dysuria. - Objective Vital Signs Temperature 98.4 F 07/27/16 07:22 Pulse Rate 101 07/27/16 07:22 Respiratory Rate 14 07/27/16 07:22 Blood Pressure 137/77 07/27/16 07:22 O2 Saturation by Pulse Oximetry 92 07/27/16 07:22 Oxygen Delivery Method Room Air Oxygen Flow Rate 0 Intake and Output 07/26/16 07/27/16 07/28/16 06:59 06:59 06:59 Intake Total 5076 2050 Output Total 4075 1900 Balance 1001 150 General: Alert, Oriented x3, Cooperative, No Acute Distress HEENT: Mucous membr. moist/pink Lungs: Clear to Auscultation Bilaterally Cardiovascular: Regular Rate and Rhythm Abdomen: Soft, Normal Bowel Sounds, No Tenderness, No Masses Extremities: Normal Pulses, No Edema Skin: Normal Color Neurological: Normal Speech Psych/Mental Status: Normal Mood Laboratory 07/27/16 06:15 07/26/16 06:10 07/27/16 06:15 RBC 4.16 L MCHC 31.2 L RDW 14.8 H Current Medications: Current meds reviewed in EMR. - Problems: Assessment/Plan (1) Status post total left knee replacement Status: AcuteAssessment/Plan: Management per orthopedics, doing well. Possible discharge this p.m. (2) HTN (hypertension), benign Status: ChronicAssessment/Plan: stable (3) Acute blood loss anemia Status: AcuteAssessment/Plan: mild, asymptomatic. (4) Leukocytosis Status: AcuteAssessment/Plan: suspect response to surgery, no evidence of acute infectious process. VTE Prophylaxis: Mechanical and ASA Disposition: D/C today or tomorrow.
--- NOTE | 2016-07-28 11:39 | DS ---
ANIBAL TEIXEIRA [id number] : 1950 DATE OF ADMISSION: July 25, 2016 DATE OF DISCHARGE: July 27, 2016 DISCHARGE DIAGNOSES: Left knee DJD HOSPITAL PROCEDURES: Left TKA SURGEON: Jesus Solis M.D. BRIEF HISTORY: Patient is a 65-year-old female with clinical and radiographic evidence of advanced DJD of their left knee. For the full history please see the chart note. BRIEF HOSPITAL COURSE: Patient was admitted on 07/25/16. Dr. Jesus Solis performed a left total knee arthroplasty. They were moved to the recovery room in stable condition. They were given 4 doses of antibiotic for empiric coverage. Joseluis Lowe MD consulted and managed perioperative medical comorbidities. For his consultation see the chart note. DVT prophylaxis consisted of aspirin, 325mg daily for 6 weeks, JUDITH hose and AV foot pumps and mobility. PT was instituted postop day 1 with left total knee arthroplasty protocol, weightbearing as tolerated. Their incision site remained benign, their vital signs remained stable and they remained neurally and vascularly intact through the duration of the stay. They were discharged home on postop day 2 to continue their outpatient PT at [facility] with left total knee arthroplasty protocol, weightbearing as tolerated. DISCHARGE INSTRUCTIONS: 1. Keep the wound site clean. May shower and pat incision site dry, but do not soak until f/u. Call office with any questions or concerns and f/u for your dressing change as scheduled 1 week postop. 2. Continue the use of JUDITH hose bilaterally. 3. Cooling unit 3-4 times daily for 30 minutes duration. 4. Outpatient PT at [facility] for left total knee arthroplasty protocol, weightbearing as tolerated. MEDICATIONS: 1. Patient is to resume normal preop medications. 2. Anti-coagulation will be with aspirin, 325mg daily for 6 weeks. 3. Pain management will be with OxyContin, 10mg every 12 hours x 10 days, Oxycodone, 5mg 1-2 every 4 hours prn for breakthrough pain, and Tramadol, 50mg every 6 hours prn pain. She also received Zofran for nausea, 4mg, every 6 hours as needed. 4. Patient was also advised on utilization of a multi-vitamin with mineral daily as well as Vitamin C, 500mg daily for 1 month. 5. Patient encouraged to take an iron supplement in the form of ferrous sulfate, 325mg daily for 4 weeks. 6. Colace, 100mg, b.i.d. until regular bowel movement. FOLLOW-UP: Please return to the clinic as scheduled for your first scheduled postop check. Prior to that point in time please call with any questions or concerns. Kyrie CC: Shannan Lyles
[2016-07-28] MEDS ORDERED: BISACODYL 10 MG SUP PR PRN (13:33)
== END 2016-07-27 15:15 | disposition home or self-care (01) | DRG 470 ==
LOC: OR 07-25 08:13 → MS 07-25 14:06
PROVIDERS: ADMIT Orthopaedic Surgery; ATTEND Orthopaedic Surgery
PROC: 0SRD0J9 Replacement of Left Knee Joint with Synthetic Substitute, Cemented, Open Approach (ICD-10-PCS; principal; 2016-07-25)
DX: M17.12 Unilateral primary osteoarthritis, left knee (principal); I10 Essential (primary) hypertension

== ENCOUNTER 2016-07-30 09:25 | Observation (INO) | payer MEDICARE ==
[2016-07-30] MEDS ORDERED: IOPAMIDOL 370 (76%) 100 ML VIAL IV ONE (09:26)
[2016-07-30] MEDS ORDERED: IOPAMIDOL 370 (76%) IV.SOLN 150 ML IV ONE (09:26)
[2016-07-30] MEDS ORDERED: LACTATED RINGERS 1,000 ML ONE ×2 (10:42→14:14)
[2016-07-30 11:04] LABS: ABSOLUTE NEUTROPHIL COUNT 10.8 K/mm3 (1.8-7.7); BASO # 0.1 K/mm3 (0.0-0.2); BASO % 0.5 % (0.2-1.0); EOS # 0.1 (0.0-0.5); EOS % 0.6 % (0.9-2.9); HEMOGLOBIN 11.9 gm/l (12.0-16.0); IMM NEUT% 0.3 % (0-1); LYMPH # 1.1 (1.0-4.8); MEAN CELL VOLUME 86.4 fl (81.0-99.0); MEAN CORPUSCULAR HGB CONC 31.3 g/dl (33.0-37.0); MEAN PLATELET VOLUME 10.3 fl (7.4-10.4); MONO # 1.3 (0.0-0.8); MONO % 9.8 % (4-12); NEUT % 80.8 % (43-75); PLATELET COUNT 332 K/mm3 (130-400); RED CELL DISTRIBUTION WIDTH 14.2 % (11.5-14.5)
[2016-07-30 11:17] LABS: ALBUMIN 3.6 gm/dL (3.5-5.7); CALCIUM 9.9 mg/dL (8.6-10.3)
--- NOTE | 2016-07-30 12:22 | CT ---
ABD/PELVIS W/ CON COMPARISON: None. HISTORY: Severe constipation since knee surgery 07/25/2016. Technique: No oral contrast. Intravenous injection 100 mL Isovue 370. Using a [employer] Aquilion [address], images were obtained from the diaphragm to the floor the pelvis. An automated dose reduction technique was used to minimize patient radiation dose. Dose information: CTDIvol (mGy): 11.40 DLP(mGycm): 527.30 FINDINGS: Lung bases: Subsegmental atelectasis or scar in the left lower lobe base. Inferior mediastinum and heart: Cardiomegaly. Liver: Normal. Gallbladder:Normal. Bile ducts: Normal. Pancreas: Atrophy. Spleen: Normal. Adrenal glands: Normal. Kidneys: Simple cyst in the right kidney. Ureters: Normal Urinary bladder: Normal. Uterus and adnexa: Hysterectomy Blood vessels: Normal Lymph nodes: Normal Stomach: Normal Duodenum: Normal Small intestine: Normal Appendix: Normal Colon: Transition and the sigmoid colon diameter. Proximal to the sigmoid colon, the remainder of colon is distended with fluid. Abdominal wall and supporting musculature: Normal Bones: Advanced degenerative changes in the spine. No acute finding. Right hip replacement. IMPRESSION: 1. Possible stricture in the sigmoid colon without visible mass. Proximal dilation of the colon with fluid. 2. Incidental findings include left lower lobe subsegmental atelectasis or scar, cardiomegaly, atrophy of the pancreas, simple cyst in the right kidney, hysterectomy, degenerative changes in the spine, and right hip replacement. The report was sent to the emergency department electronic medical record system, 07/30/2016 at 12:24
[2016-07-30] MEDS ORDERED: MORPHINE SULFATE 4 MG/ML SYRINGE ONE (13:15)
[2016-07-30] MEDS ORDERED: ONDANSETRON 4 MG/2ML 2 ML VIAL ONE (13:15)
[2016-07-30] MEDS ORDERED: CEFTRIAXONE 1 GRAM DUPLEX 50 ML IV ONE (14:14)
[2016-07-30] MEDS ORDERED: VANCOMYCIN HCL 2 G in SODIUM CHLORIDE 0.9% 500 ML IV ONE (14:30)
--- NOTE | 2016-07-30 14:49 | CT ---
CTA CHEST FOR PE COMPARISON: CT abdomen and pelvis, 07/30/2016 HISTORY: Shortness of breath and recent surgery. Low oxygen saturation. Technique: Intravenous injection 80 mL of Isovue-370. Using a [employer] Aquilion [address] scanner, following a CT angiogram protocol, images obtained through the thorax. Under concurrent supervision and interpretation, requiring a separate 3-D workstation, the technologist created 3-D CT angiograms. An automated dose reduction technique was used to minimize patient radiation dose. Dose information: DLP(mGycm): 32.50 FINDINGS: Pulmonary arteries and veins: Adequate contrast opacification. No pulmonary embolism. Aorta: Normal Heart and coronary arteries: Normal. Lungs: Platelike atelectasis in both lower lobe bases. Trachea and bronchi: Normal. Mediastinum and luis: Normal. Pleura and pericardium: Normal. Chest wall: Normal. Spine: No acute finding. Degenerative changes. Upper abdomen:Normal. 3-D CT angiogram: Normal. IMPRESSION: 1. No evidence of pulmonary. 2. Platelike atelectasis in both lower lobe base. 3. Degenerative changes in the thoracic spine. The report was sent to the emergency department electronic medical record system 07/30/2016 at 14:51
--- NOTE | 2016-07-30 14:50 | US ---
DUPLX SCAN VEIN EXT UNI LT COMPARISON: None. HISTORY: Shortness of breath. Recent left knee surgery with erythema noted on the inner left thigh. Check for deep venous thrombosis. Technique: The veins of the left lower extremity were interrogated with real-time grayscale ultrasound, color Doppler, and spectral Doppler. Vessel compressibility and flow augmentation were assessed. FINDINGS: Deep venous thrombosis: None. Common femoral vein: Normal. Proximal femoral vein: Normal. Saphenous vein junction: Normal. Mid to distal femoral vein: Normal. Popliteal vein: Normal. Peroneal veins: Normal. Posterior tibial veins: Normal. IMPRESSION: 1. Normal study. No evidence of deep venous thrombosis of the left lower extremity. The report was sent to the emergency department electronic medical record system 07/30/2016 at 14:53
--- NOTE | 2016-07-30 15:50 | RAD ---
BARIUM ENEMA COMPARISON: CT abdomen and pelvis, 07/30/2016 HISTORY: Stricture of the sigmoid colon. Technique: Single contrast Gastrografin enema, dilated 1-3 by water.. FINDINGS: Rectum: Normal. Sigmoid colon: Normal. Descending colon: Normal. Transverse:: Normal. Ascending colon and cecum: Normal. Mass: None. IMPRESSION: 1. Spasm of the sigmoid colon. No stricture or mass. Results discussed with Delon Fuller M.D., 07/30/2016 at 15:40
[2016-07-30] MEDS ORDERED: SODIUM CHLORIDE 0.9% FLUSH 10 ML ONE (18:05)
[2016-07-30 18:23] VITALS: BMI 30.3
[2016-07-30] MEDS ORDERED: CYCLOBENZAPRINE HCL 10 MG TABLET PO PRN (19:21)
[2016-07-30] MEDS ORDERED: MENTHOL/CETYLPYRD 1 EACH LOZENGE PO PRN (19:23)
[2016-07-30] MEDS ORDERED: BISACODYL 10 MG SUP PR PRN (19:23)
[2016-07-30] MEDS ORDERED: OXYCODONE HCL 5 MG TABLET PO PRN (19:23)
[2016-07-30] MEDS ORDERED: MAGNESIUM HYDROXIDE 30 ML UDCUP PO PRN (19:23)
[2016-07-30] MEDS ORDERED: ACETAMINOPHEN 325 MG TABLET PO PRN (19:23)
[2016-07-30] MEDS ORDERED: BLISTEX LIPSTICK 1 EACH TP PRN (19:23)
[2016-07-30] MEDS ORDERED: ONDANSETRON 4 MG/2ML 2 ML VIAL IV PRN (19:23)
[2016-07-30] MEDS ORDERED: CELECOXIB 200 MG CAPSULE PO SCH (21:00)
[2016-07-30] MEDS: DOCUSATE SODIUM 100 MG CAPSULE PO SCH (21:00)
[2016-07-30] MEDS: SENNOSIDES 8.6 MG TABLET PO SCH (21:00)
[2016-07-30] MEDS ORDERED: ALBUTEROL NEB 2.5 MG/3 ML VIAL.NEB NEB PRN (22:05)
[2016-07-30] MEDS: Magnesium Oxide 400 MG TABLET PO SCH (22:11)
[2016-07-30] MEDS: CALCIUM CARBONATE 600 MG/VITAMIN D3 400 UNIT/TABLET PO SCH (22:11)
[2016-07-31] MEDS: D5 1/2NS with 20 mEq KCL 1,000 ML IV SCH ×2 (01:56→06:39)
[2016-07-31] MEDS: KETOROLAC TROMETHAMINE 30 MG/ML 1 ML VIAL IV PRN ×2 (01:56→08:10)
[2016-07-31] MEDS ORDERED: PUMP TUBING ONE (01:58)
[2016-07-31 06:37] LABS: ALB/GLOB RATIO 1.1 (>1.0); ALBUMIN 3.2 gm/dL (3.5-5.7); CALCIUM 9.1 mg/dL (8.6-10.3); MAGNESIUM 2.3 mg/dL (1.9-2.7)
[2016-07-31 07:38] VITALS: BP 125/69
[2016-07-31] MEDS: Magnesium Oxide 400 MG TABLET PO SCH (08:09)
[2016-07-31] MEDS: SENNOSIDES 8.6 MG TABLET PO SCH (08:09)
[2016-07-31] MEDS: CALCIUM CARBONATE 600 MG/VITAMIN D3 400 UNIT/TABLET PO SCH (08:09)
[2016-07-31] MEDS: DOCUSATE SODIUM 100 MG CAPSULE PO SCH (08:09)
[2016-07-31] MEDS ORDERED: VERAPAMIL HCL 240 MG PO SCH (09:00)
[2016-07-31] MEDS ORDERED: HYDROCHLOROTHIAZIDE 12.5 MG CAP PO SCH (09:00)
[2016-07-31] MEDS ORDERED: CYANOCOBALAMIN (VITAMIN B-12) 250 MCG TABLET PO SCH (09:00)
--- NOTE | 2016-07-31 18:00 | CONS ---
ANIBAL TEIXEIRA [id number] DATE OF SERVICE: 07/30/2016 HISTORY OF PRESENT ILLNESS: Mrs. Teixeira is a very pleasant 65-year-old female with a recent total left knee replacement. She also suffers from hypertension, and osteoarthritis. Mrs. Teixeira presents to the emergency department today with increasing abdominal distention and inability to have a bowel movement. Mrs. Teixeira has done well after her knee replacement surgery with the exception of passing bowel movements. She has had a number of small bowel movements as well as mucus and is currently passing flatus, but has had no bowel movements of any substance. She has been on an escalating bowel routine culminating with mag citrate yesterday which I believe has increased her abdominal pain, and distention. In the emergency department, Mrs. Teixeira is the stated age. She complains of minimal abdominal pain and inability to pass bowel movements. PAST MEDICAL HISTORY: Includes as previously mentioned: 1. Hypertension. 2. Osteoarthritis. 3. Previous bilateral knee replacement. ALLERGIES: INCLUDE CODEINE, VICODIN, AND GLUTEN. CURRENT MEDICATIONS: Her home medications include: 1. Verapamil. 2. Tramadol. 3. Naproxen. 4. Hydrochlorothiazide. 5. Escalating bowel routine. 6. Flexeril. 7. Calcium. 8. Aspirin. PHYSICAL EXAMINATION: GENERAL: Mrs. Teixeira is her stated age. ABDOMEN: Her abdomen is distended. It is soft throughout the entire abdominal cavity. She does have very minimal tenderness to deep palpation in the region of the cecum, and no evidence of pain or tenderness throughout the remaining portion of the colon. EXTREMITIES: On exam of her left lower limb, she has some erythema along the wound site in the region of the left knee as well as some mild erythema in the inner portion of the left thigh. LABORATORY STUDIES: Her lab work reveals a white count of 13.3, and a platelet count of 332. Elevation of glucose of 112. DIAGNOSTIC IMAGING: Mrs. Teixeira underwent an abdominal CAT scan which reveals a dilated colon with an obstruction point at the region of the rectosigmoid junction. The remaining rectum is collapsed. There is no evidence of mass lesion within the rectosigmoid junction, but the entire rectum appears to be hepatitic with dilation of the sigmoid colon extending to the cecum. The cecum demonstrates a dilation up to approximately 7 cm. ASSESSMENT AND PLAN: I had a long discussion today with Mrs. Teixeira. I reviewed her postoperative course and her abdominal pain, as well as her exam findings and CAT scan. Of note, Mrs. Teixeira has undergone a routine colonoscopy starting at age 48 with the most recent colonoscopy within the last year. There was no evidence of polyps or cancer on any of her colonoscopies. She does have a remote family history of colon cancer in her grandfather on her father's side in his late 70s. At this point, Mrs. Teixeira has a partial colonic obstruction with dilation of her cecum. I recommendation placement of a nasogastric tube and a Gastrografin enema to delineate the exact etiology of the colon obstruction. If the Gastrografin enema does not identify a stricture, this may be therapeutic and assist with decompression of the bowel. If the Gastrografin demonstrates a chronic stricture in this region, then a more definitive colonoscopy, or potentially an operative intervention may be warranted. MARIBELL/shila
[2016-07-31] MEDS ORDERED: Heparin Sodium 5000 unit/0.5ml syringe SUB-Q SCH (20:00)
== END 2016-07-31 11:55 | disposition home or self-care (01) ==
LOC: ED 09:25 → MS 16:19
PROVIDERS: ADMIT Surgery; ATTEND Surgery
PROC: 0D9670Z Drainage of Stomach with Drainage Device, Via Natural or Artificial Opening (ICD-10-PCS; principal; 2016-07-30)
DX: K56.60 Unspecified intestinal obstruction (principal); I10 Essential (primary) hypertension